=== PATIENT | female | born 1970 | race Caucasian/White ===

== ENCOUNTER 2021-01-25 19:45 | Emergency (ER) | payer BC ==
[~2021-01-25] VITALS: Ht 165.1 cm; Wt 51.3 kg
[2021-01-25] MEDS ORDERED: TRAMADOL HCL 50 MG TABLET ONE (20:14)
[2021-01-25] MEDS ORDERED: HYDROCODONE/APAP 5/325MG TABLET ONE (20:19)
[2021-01-25] MEDS ORDERED: IBUP-1955 PO (20:27)
[2021-01-25] MEDS ORDERED: HYDR-4303 PO (20:27)
[2021-01-25] MEDS ORDERED: HYDROCODONE/APAP 5/325MG TABLET PO ONE (20:30)
[2021-01-25] MEDS ORDERED: TRAMADOL HCL 50 MG TABLET PO ONE (20:30)
--- NOTE | 2021-01-25 20:41 | NUR ---
TECH AT BEDSIDE FOR SPLINT
--- NOTE | 2021-01-25 20:46 | NUR ---
OUTSIDE TO DRIVE PATIENT HOME.
--- NOTE | 2021-01-25 20:46 | NUR ---
Patient discharged to home in stable condition. Written and verbal after care instructions given. Patient verbalizes understanding of instruction.
[2021-01-25 20:48] VITALS: BP 123/76
== END 2021-01-25 20:48 | disposition home or self-care (01) ==
LOC: ER 19:49
DX: S52.572A Other intraarticular fracture of lower end of left radius, initial encounter for closed fracture (principal); Z79.899 Other long term (current) drug therapy; Z88.1 Allergy status to other antibiotic agents; W01.0XXA Fall on same level from slipping, tripping and stumbling without subsequent striking against object, initial encounter; Y93.89 Activity, other specified; Y92.89 Other specified places as the place of occurrence of the external cause; Y99.8 Other external cause status
CPT/HCPCS: 73110; 73130-TC